=== PATIENT | male | born 1985 | race Caucasian/White ===

== ENCOUNTER 2018-08-10 19:06 | Emergency (ER) | payer OTHER ==
[~2018-08-10] VITALS: Ht 177.8 cm; Wt 101.2 kg
[~2018-08-10 19:06] MED LIST: ACETAMINOPHEN-1 EAC1 PO; BACTRIM DS TAB1 EACH PO; CARISOPRODOL 3350 MG PO; CLEOCIN HCL150 M1 PO; CLEOCIN HCL150 MG PO; CYMBALTA30 MG PO; CYMBALTA60 MG; DOXYCYCLINE 10100 MG PO; DOXYCYCLINE HYC20 MG PO; HYDROCODON-ACE1 EAC5; HYDROCODON-ACE1 EAC7 PO; HYDROCODONE-AP1 EAC6 PO; HYDROCODONE-APA1 TA1 PO; LYRICA 50 MG50 MG PO; MEDROLDOSEPACK PO; MELOXICAM7.5 MG PO; PERCOCET 5-3251 EACH PO; PERCOCET 7.5-31 EACH PO; PERCOCET PO; PREDNISONE50 MG PO; PRILOSEC20 MG PO; PROBIOTIC; PROBIOTIC1 EAC1; PROZAC 20 MG20 MG; ROBAXIN500 MG PO; SENNA; SENNA8.6 MG; SENNA8.6 MG PO; TRAMADOL 50 MG50 MG; TRAMADOL 50 MG50 MG PO; ULTRAM 50MG TAB50 MG PO; ZANTAC 150MG T150 MG; ZYRTEC10 MG PO
[2018-08-10 20:40] LABS: ABSOLUTE NEUTROPHILS 7.5 thou/uL (1.4-8.2); BASOPHILS 1.2 % (0.0-2.0); HEMATOCRIT 43.8 % (42.0-52.0); HEMOGLOBIN 15.2 gm/dL (14.0-18.0); LYMPHOCYTES 27.8 % (24.0-44.0); MCHC 34.8 g/dL (28.0-37.0); MCV 89.1 fL (80.0-100.0); MONOCYTES 7.1 % (1.0-8.0); PLATELET COUNT 265 thou/uL (150-400); POLYS 62.9 % (36.0-66.0); RBC 4.92 mil/uL (4.50-6.00); RDW 13.8 % (10.5-14.5); WBC 11.9 thou/uL (4.0-11.0)
[2018-08-10 20:54] LABS: CALCIUM 9.2 mg/dL (8.5-10.1); POTASSIUM 3.6 mmol/L (3.5-5.1)
[2018-08-10] MEDS ORDERED: BACTRIM DS TAB1 EACH PO (21:51)
[2018-08-10] MEDS ORDERED: IBUPROFEN 400400 M2 PO (21:51)
[2018-08-10 22:15] VITALS: BP 121/80
== END 2018-08-10 22:15 | disposition home or self-care (01) ==
LOC: ER 19:06
PROVIDERS: Student in an Organized Health Care Education/Training Program
DX: L73.2 Hidradenitis suppurativa (principal); M79.7 Fibromyalgia; J45.909 Unspecified asthma, uncomplicated; Z88.8 Allergy status to other drugs, medicaments and biological substances; Z87.891 Personal history of nicotine dependence

== ENCOUNTER 2021-06-03 23:46 | Emergency (ER) | payer MEDICARE ==
[~2021-06-03] VITALS: Ht 177.8 cm; Wt 104.3 kg
[~2021-06-03 23:46] MED LIST changes: +ALLEGRA ALLERG180 MG PO; +ALLEGRA ALLERGY60 MG PO; +BACTRIM DS TAB1 EAC1 PO; +CLEOCIN HCL300 MG PO; +HUMERA; +HUMIRA20 MG/0.2 SUBQ; +IBUPROFEN 400400 M2 PO; +NORCO 5-325 TA1 EAC1 PO; +NORCO 5-325 TA1 EAC2 PO; +VIBRAMYCIN 100100 M2 PO; +ZANTAC PO
[2021-06-03 23:58] VITALS: BP 149/86
[2021-06-04] MEDS ORDERED: OMEPRAZOLE 20 M20 M1 PO (00:02)
[2021-06-04] MEDS ORDERED: CELEXA 20 MG TA20 MG PO (00:03)
[2021-06-04] MEDS ORDERED: DOXYCYCLINE 10100 MG PO (00:32)
== END 2021-06-04 00:45 | disposition home or self-care (01) ==
LOC: ER 23:46
DX: L03.221 Cellulitis of neck (principal); M79.7 Fibromyalgia; J45.909 Unspecified asthma, uncomplicated; F32.9 Major depressive disorder, single episode, unspecified; Z98.890 Other specified postprocedural states; Z79.899 Other long term (current) drug therapy; Z88.5 Allergy status to narcotic agent; Z88.8 Allergy status to other drugs, medicaments and biological substances; Z87.891 Personal history of nicotine dependence